=== PATIENT | female | born 1940 | race Two or more races ===

== ENCOUNTER 2025-07-29 18:29 | Emergency (ER) | payer OTHER ==
[~2025-07-29] VITALS: Ht 147.3 cm; Wt 62.6 kg
[2025-07-29] MEDS ORDERED: CRESTOR40 MG PO (18:35)
[2025-07-29] MEDS ORDERED: AMBIEN10 MG PO (18:35)
[2025-07-29] MEDS ORDERED: PEPCID AC10 MG PO (18:35)
[2025-07-29] MEDS ORDERED: LOSARTAN POTASS50 MG PO (18:35)
[2025-07-29] MEDS ORDERED: PROTONIX20 MG PO (18:36)
== END 2025-07-29 23:32 | disposition home or self-care (01) ==
LOC: EDBD 18:30 → ER 18:30
DX: T67.09XA Other heatstroke and sunstroke, initial encounter (principal); Z88.8 Allergy status to other drugs, medicaments and biological substances